=== PATIENT | male | born 1975 | race Caucasian/White ===

== ENCOUNTER 2018-05-17 16:45 | Outpatient (RCR) | payer OTHER, SELFPAY ==
--- NOTE | 2018-03-13 15:37 | PT.OIE ---
Current Diagnoses Low back pain (03/13/18) Provider Visit Care Team Role Provider Type Geetha Allen, JULIA, ANP, C PYTHON DEVELOPER-C Attending Provider Advanced Attending Urologist Family Provider Primary Care Provider Specialty: Family Practice Address: [address] [place] [address], [facility] Email: Physical Therapy Initial Evaluation PT-OP-A Visit Information Start: 03/13/18 07:26 Freq: Status: Active Protocol: Document 03/13/18 08:19 [facility] (Rec: 03/13/18 14:29 [facility] [id number]) Out-Patient Physical Therapy Visit Information Visit Information Visit Type Initial Evaluation Visit Start Time 08:20 Visit Stop Time 09:05 Total Visit Minutes 45 Visit Number 1 Number of MECHANICAL DESIGN TECHNICIAN Visits 0 Evaluation Information Evaluation Date 03/13/18 PT-OP-B Current Condition Start: 03/13/18 07:26 Freq: Status: Active Protocol: Document 03/13/18 08:19 [facility] (Rec: 03/13/18 14:29 [facility] [id number]) Current Condition History of Current Condition Onset Date about 1 month ago Current Complaints LBP History of Current Condition Pt reports he was lifting a tub of his kid's stuff and felt a twinge and his back tigthned up and got worse that week, but has slowly gotten better. 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 Prior Treatments and Tests none Treatment Goals Patient/Caregiver Goals manage pain, learn more about back & anatomy & how to keep his back safe & prevent further injury PT-OP-C Subjective Start: 03/13/18 07:26 Freq: Status: Active Protocol: Document 03/13/18 08:19 [facility] (Rec: 03/13/18 14:29 [facility] [id number]) Patient Questionnaires Oswestry Low Back Index Oswestry Score 20 Oswestry Impairment 20 to 39% Impaired (Score 20- 39) OP-PT Pain Assessment Location Bilateral Back Pain Location Details lumbar region Intensity 4 Scale Used Numeric (1 - 10) Frequency Intermittent Pain Aggravating Factors Sitting Other Pain Aggravating Factors driving, wehn wake up, lifting kids, pain day after sports Other Pain Alleviating Factors alieve, stretch, playing sports/moving PT-OP-F Manual Assessment Start: 03/13/18 07:26 Freq: Status: Active Protocol: Document 03/13/18 08:19 [facility] (Rec: 03/13/18 08:59 [facility] [id number]) Manual Assessments Soft Tissue Assessment Soft Tissue Mobility Assessment Mild ES & QL tightness Joint Mobility Assessment Joint Mobility Assessment Equal greater trochanters, iliac crests & PSIS PT-OP-G Mobility & Gait Start: 03/13/18 07:26 Freq: Status: Active Protocol: Document 03/13/18 08:19 [facility] (Rec: 03/13/18 08:59 [facility] [id number]) OP Gait Assessment Comments Gait Comments Inc ER of B pelvis with push off; dec ant elevation & post depression PT-OP-J Posture/Palpation/Skin Start: 03/13/18 07:26 Freq: Status: Active Protocol: Document 03/13/18 08:19 [facility] (Rec: 03/13/18 08:59 [facility] [id number]) Posture Evaluation [facility] Postural Classification System [facility] Postural Classifications Posterior/Posterior Vertebral Compression Test 1 Elbow Flexion Test 5 Lumbar Protective Mechanism Left AP 2 Lumbar Protective Mechanism Right AP 2 Lumbar Protective Mechanism Left PA 2 Lumbar Protective Mechanism Right PA 2 Leg Swing Left WNL Leg Swing Right Hard End Feel Limited PT-OP-K Range of Motion Start: 03/13/18 07:26 Freq: Status: Active Protocol: Document 03/13/18 08:19 [facility] (Rec: 03/13/18 08:59 [facility] [id number]) Lumbar Spine Range of Motion Lumbar Spine Active Degrees Testing Position standing Flexion 60 Extension 25 Lateral Flexion Left 25 Lateral Flexion Right 25 Comments tight with ext & pain with returning from flexed position PT-OP-L Special Tests Start: 03/13/18 07:26 Freq: Status: Active Protocol: Document 03/13/18 08:19 [facility] (Rec: 03/13/18 08:59 [facility] [id number]) Special Tests Lumbar Spine Special Tests Straight Leg Raise Test Results HS tightness Slump Test Results neg PT-OP-M Strength Start: 03/13/18 07:26 Freq: Status: Active Protocol: Document 03/13/18 08:19 [facility] (Rec: 03/13/18 08:59 [facility] [id number]) Hip Strength Hip Manual Muscle Testing Right Flexion (L2) 5 Normal Extension (S1) 4- Good- Abduction 4 Good External Rotation 4+ Good+ Internal Rotation 4+ Good+ Comments poor core control B in seated testing Left Flexion (L2) 5 Normal Extension (S1) 4- Good- Abduction 4 Good External Rotation 5 Normal Internal Rotation 4+ Good+ PT-OP-Q Treatments Start: 03/13/18 07:26 Freq: Status: Active Protocol: Document 03/13/18 08:19 [facility] (Rec: 03/13/18 08:59 [facility] [id number]) Therapeutic Exercises Supine Exercises 3 Supine Exercise Name HS stretch Side bilateral Reps/Minutes 30 sec holds 2 Supine Exercise Name DKTC 1 Supine Exercise Name flex & diagonal isometric holds Side bilateral Reps/Minutes 30 sec holds PT-OP-T Assessment and Plan Start: 03/13/18 07:26 Freq: Status: Active Protocol: Document 03/13/18 08:19 [facility] (Rec: 03/13/18 15:34 [facility] [id number]) Physical Therapy Assessment Rehab Potential Rehabilitation Potential Excellent Evaluation Complexity Number of Personal Factors/Comorbidities 1-2 Number of Body Systems Impaired 4 or More Clinical Presentation at Evaluation Stable Impairments Impairments Activity Tolerance Gait Pain Posture ROM Soft Tissue Mobility Strength Goals Three Impairment pain Short Term Goal (STG) Pain to 2/10 at worst STG Duration 04/13/18 [facility] Goal (LTG) Pt will reprot no pain with driving, sleeping and sitting extended LTG Duration 05/14/18 Two Impairment posture Short Term Goal (STG) Pt will present with good posture without cueing. STG Duration 04/13/18 Personnel Administrator Goal (LTG) Pt will be able to lift with good lifting mechanics LTG Duration 05/14/18 One Impairment strength Short Term Goal (STG) Indep HEP STG Duration 04/13/18 Personnel Administrator Goal (LTG) 5/5 strength to allow pt to do normal tasks without pain LTG Duration 05/14/18 Physical Therapy Plan Frequency and Duration Frequency of Treatment 1x/Week Duration of Treatment 2 months Plan of Care Start Date 03/13/18 Plan of Care End Date 05/14/18 Therapeutic Interventions Therapeutic Interventions Aquatic Therapy Balance Training Gait Training Home Exercise Program Joint Mobilizations Manual Therapy Soft Tissue Mobilization Taping Therapeutic Exercises Modalities Cold Pack/Ice Massage Electric Stimulation Hot Packs Traction- Mechanical Ultrasound Next Visit Focus/Plan Next Note Type Treatment Note Next Visit Plan sleep position, progress supine core activation, posture edu, lifting mechanics
--- NOTE | 2018-03-13 15:38 | PT.OPPOC ---
Current Diagnoses Low back pain (03/13/18) Provider Visit Care Team Role Provider Type Geetha Allen DNP, ANP, LINE PRODUCTION COOK-C Attending Provider Advanced Commercial Loan Specialist Family Provider Primary Care Provider Specialty: Family Practice Address: [address] [place] [address], [facility] Email: Plan Of Care PT-OP-T Assessment and Plan Start: 03/13/18 07:26 Freq: Status: Active Protocol: Document 03/13/18 08:19 [facility] (Rec: 03/13/18 15:34 [facility] [id number]) Physical Therapy Assessment Rehab Potential Rehabilitation Potential Excellent Evaluation Complexity Number of Personal Factors/Comorbidities 1-2 Number of Body Systems Impaired 4 or More Clinical Presentation at Evaluation Stable Impairments Impairments Activity Tolerance Gait Pain Posture ROM Soft Tissue Mobility Strength Goals Three Impairment pain Short Term Goal (STG) Pain to 2/10 at worst STG Duration 04/13/18 Pain Management Nurse Goal (LTG) Pt will reprot no pain with driving, sleeping and sitting extended LTG Duration 05/14/18 Two Impairment posture Short Term Goal (STG) Pt will present with good posture without cueing. STG Duration 04/13/18 Penitentiary Goal (LTG) Pt will be able to lift with good lifting mechanics LTG Duration 05/14/18 One Impairment strength Short Term Goal (STG) Indep HEP STG Duration 04/13/18 Pain Management Nurse Goal (LTG) 5/5 strength to allow pt to do normal tasks without pain LTG Duration 05/14/18 Physical Therapy Plan Frequency and Duration Frequency of Treatment 1x/Week Duration of Treatment 2 months Plan of Care Start Date 03/13/18 Plan of Care End Date 05/14/18 Therapeutic Interventions Therapeutic Interventions Aquatic Therapy Balance Training Gait Training Home Exercise Program Joint Mobilizations Manual Therapy Soft Tissue Mobilization Taping Therapeutic Exercises Modalities Cold Pack/Ice Massage Electric Stimulation Hot Packs Traction- Mechanical Ultrasound Next Visit Focus/Plan Next Note Type Treatment Note Next Visit Plan sleep position, progress supine core activation, posture edu, lifting mechanics Plan of Care Dates Plan of Care Start Date 03/13/18 Plan of Care End Date 05/14/18 Please Sign and Return: I have reviewed this Plan of Care and certify that the skilled therapy services above are required to meet the patient?s needs. Physician Signature Date Printed Name and Credentials Clinical Instructor Signature Printed Name and Credentials
--- NOTE | 2018-03-21 17:33 | PT.OTN ---
Current Diagnoses Low back pain (03/21/18) Physical Therapy Treatment Note PT-OP-A Visit Information Start: 03/13/18 07:26 Freq: Status: Active Protocol: Document 03/21/18 16:55 [facility] (Rec: 03/21/18 17:32 [facility] [id number]) Out-Patient Physical Therapy Visit Information Visit Information Visit Type Treatment Note Visit Note Arrived 10 minutes late Visit Start Time 16:55 Visit Stop Time 17:30 Total Visit Minutes 35 Visit Number 2 Number of TITLE EXAMINER Visits 0 Evaluation Information Evaluation Date 03/13/18 PT-OP-B Current Condition Start: 03/13/18 07:26 Freq: Status: Active Protocol: Document 03/13/18 08:19 [facility] (Rec: 03/13/18 14:29 [facility] [id number]) Current Condition History of Current Condition Onset Date about 1 month ago Current Complaints LBP History of Current Condition Pt reports he was lifting a tub of his kid's stuff and felt a twinge and his back tigthned up and got worse that week, but has slowly gotten better. 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 Prior Treatments and Tests none Treatment Goals Patient/Caregiver Goals manage pain, learn more about back & anatomy & how to keep his back safe & prevent further injury PT-OP-C Subjective Start: 03/13/18 07:26 Freq: Status: Active Protocol: Document 03/21/18 16:55 [facility] (Rec: 03/21/18 17:32 [facility] [id number]) OP-PT Subjective Patient Comments Patient Comments Pt notes that he's been trying to do his exercises, but feels like his back or hamstrings just randomly get tight after sitting too long in his car or performing any activity. PT-OP-F Manual Assessment Start: 03/13/18 07:26 Freq: Status: Active Protocol: Document 03/13/18 08:19 [facility] (Rec: 03/13/18 08:59 [facility] [id number]) Manual Assessments Soft Tissue Assessment Soft Tissue Mobility Assessment Mild ES & QL tightness Joint Mobility Assessment Joint Mobility Assessment Equal greater trochanters, iliac crests & PSIS PT-OP-G Mobility & Gait Start: 03/13/18 07:26 Freq: Status: Active Protocol: Document 03/13/18 08:19 [facility] (Rec: 03/13/18 08:59 [facility] [id number]) OP Gait Assessment Comments Gait Comments Inc ER of B pelvis with push off; dec ant elevation & post depression PT-OP-J Posture/Palpation/Skin Start: 03/13/18 07:26 Freq: Status: Active Protocol: Document 03/13/18 08:19 [facility] (Rec: 03/13/18 08:59 [facility] [id number]) Posture Evaluation [facility] Postural Classification System [facility] Postural Classifications Posterior/Posterior Vertebral Compression Test 1 Elbow Flexion Test 5 Lumbar Protective Mechanism Left AP 2 Lumbar Protective Mechanism Right AP 2 Lumbar Protective Mechanism Left PA 2 Lumbar Protective Mechanism Right PA 2 Leg Swing Left WNL Leg Swing Right Hard End Feel Limited PT-OP-K Range of Motion Start: 03/13/18 07:26 Freq: Status: Active Protocol: Document 03/13/18 08:19 [facility] (Rec: 03/13/18 08:59 [facility] [id number]) Lumbar Spine Range of Motion Lumbar Spine Active Degrees Testing Position standing Flexion 60 Extension 25 Lateral Flexion Left 25 Lateral Flexion Right 25 Comments tight with ext & pain with returning from flexed position PT-OP-L Special Tests Start: 03/13/18 07:26 Freq: Status: Active Protocol: Document 03/13/18 08:19 [facility] (Rec: 03/13/18 08:59 [facility] [id number]) Special Tests Lumbar Spine Special Tests Straight Leg Raise Test Results HS tightness Slump Test Results neg PT-OP-M Strength Start: 03/13/18 07:26 Freq: Status: Active Protocol: Document 03/13/18 08:19 [facility] (Rec: 03/13/18 08:59 [facility] [id number]) Hip Strength Hip Manual Muscle Testing Right Flexion (L2) 5 Normal Extension (S1) 4- Good- Abduction 4 Good External Rotation 4+ Good+ Internal Rotation 4+ Good+ Comments poor core control B in seated testing Left Flexion (L2) 5 Normal Extension (S1) 4- Good- Abduction 4 Good External Rotation 5 Normal Internal Rotation 4+ Good+ PT-OP-Q Treatments Start: 03/13/18 07:26 Freq: Status: Active Protocol: Document 03/21/18 16:55 [facility] (Rec: 03/21/18 17:32 [facility] [id number]) Gym Equipment Therapeutic Ball 4 Exercise Details Pelvic circles Ball Size/Color Green - 65 cm Body Position Sitting 3 Exercise Details Lateral pelvic tilts Ball Size/Color Green - 65 cm Body Position Sitting 2 Exercise Details Pelvic tilts Ball Size/Color Green - 65 cm Body Position Sitting 1 Exercise Details Trunk rotation vs lv 3 resistance Ball Size/Color Green - 65 cm Body Position Sitting Therapeutic Exercises Supine Exercises 7 Supine Exercise Name PPT /c TrA activation - Air Bike 6 Supine Exercise Name PPT /c TrA activation - Marching 5 Supine Exercise Name PPT /c TrA activation - Alternating SLR 4 Supine Exercise Name PPT /c TrA activation Comments 5 sec hold Sidelying Exercises 1 Sidelying Exercise Name Reach and Roll Side bilateral Other Exercises 1 Other Exercise Name Cat/Camel PT-OP-T Assessment and Plan Start: 03/13/18 07:26 Freq: Status: Active Protocol: Document 03/21/18 16:55 [facility] (Rec: 03/21/18 17:32 [facility] [id number]) Physical Therapy Assessment Impairments Impairments Activity Tolerance Gait Pain Posture ROM Soft Tissue Mobility Strength Goals Three Impairment pain Short Term Goal (STG) Pain to 2/10 at worst STG Duration 04/13/18 Cheese Factory Worker Goal (LTG) Pt will reprot no pain with driving, sleeping and sitting extended LTG Duration 05/14/18 Two Impairment posture Short Term Goal (STG) Pt will present with good posture without cueing. STG Duration 04/13/18 Penitentiary Goal (LTG) Pt will be able to lift with good lifting mechanics LTG Duration 05/14/18 One Impairment strength Short Term Goal (STG) Indep HEP STG Duration 04/13/18 Penitentiary Goal (LTG) 5/5 strength to allow pt to do normal tasks without pain LTG Duration 05/14/18 Assessment Summary Assessment Pt struggled with instruction to move hips independently from trunk, and demonstrate minimal core control or ability to hold transverse abdominus contraction. Physical Therapy Plan Frequency and Duration Frequency of Treatment 1x/Week Duration of Treatment 2 months Plan of Care Start Date 03/13/18 Plan of Care End Date 05/14/18 Therapeutic Interventions Therapeutic Interventions Aquatic Therapy Balance Training Gait Training Home Exercise Program Joint Mobilizations Manual Therapy Soft Tissue Mobilization Taping Therapeutic Exercises Modalities Cold Pack/Ice Massage Electric Stimulation Hot Packs Traction- Mechanical Ultrasound Next Visit Focus/Plan Next Note Type Treatment Note Next Visit Plan sleep position, progress supine core activation, posture edu, lifting mechanics
--- NOTE | 2018-03-29 17:37 | PT.OTN ---
Current Diagnoses Low back pain (03/29/18) Physical Therapy Treatment Note PT-OP-A Visit Information Start: 03/13/18 07:26 Freq: Status: Active Protocol: Document 03/29/18 16:55 [facility] (Rec: 03/29/18 17:37 [facility] [id number]) Out-Patient Physical Therapy Visit Information Visit Information Visit Type Treatment Note Visit Note Arrived 10 minutes late Visit Start Time 16:55 Visit Stop Time 17:30 Total Visit Minutes 35 Visit Number 3 Number of SYSTEM SPECIALIST Visits 0 Evaluation Information Evaluation Date 03/13/18 PT-OP-B Current Condition Start: 03/13/18 07:26 Freq: Status: Active Protocol: Document 03/13/18 08:19 [facility] (Rec: 03/13/18 14:29 [facility] [id number]) Current Condition History of Current Condition Onset Date about 1 month ago Current Complaints LBP History of Current Condition Pt reports he was lifting a tub of his kid's stuff and felt a twinge and his back tigthned up and got worse that week, but has slowly gotten better. 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 Prior Treatments and Tests none Treatment Goals Patient/Caregiver Goals manage pain, learn more about back & anatomy & how to keep his back safe & prevent further injury PT-OP-C Subjective Start: 03/13/18 07:26 Freq: Status: Active Protocol: Document 03/29/18 16:55 [facility] (Rec: 03/29/18 17:37 [facility] [id number]) OP-PT Subjective Patient Comments Patient Comments My back always stiffens up on the long drive over here from work. PT-OP-F Manual Assessment Start: 03/13/18 07:26 Freq: Status: Active Protocol: Document 03/13/18 08:19 [facility] (Rec: 03/13/18 08:59 [facility] [id number]) Manual Assessments Soft Tissue Assessment Soft Tissue Mobility Assessment Mild ES & QL tightness Joint Mobility Assessment Joint Mobility Assessment Equal greater trochanters, iliac crests & PSIS PT-OP-G Mobility & Gait Start: 03/13/18 07:26 Freq: Status: Active Protocol: Document 03/13/18 08:19 [facility] (Rec: 03/13/18 08:59 [facility] [id number]) OP Gait Assessment Comments Gait Comments Inc ER of B pelvis with push off; dec ant elevation & post depression PT-OP-J Posture/Palpation/Skin Start: 03/13/18 07:26 Freq: Status: Active Protocol: Document 03/13/18 08:19 [facility] (Rec: 03/13/18 08:59 [facility] [id number]) Posture Evaluation [facility] Postural Classification System [facility] Postural Classifications Posterior/Posterior Vertebral Compression Test 1 Elbow Flexion Test 5 Lumbar Protective Mechanism Left AP 2 Lumbar Protective Mechanism Right AP 2 Lumbar Protective Mechanism Left PA 2 Lumbar Protective Mechanism Right PA 2 Leg Swing Left WNL Leg Swing Right Hard End Feel Limited PT-OP-K Range of Motion Start: 03/13/18 07:26 Freq: Status: Active Protocol: Document 03/13/18 08:19 [facility] (Rec: 03/13/18 08:59 [facility] [id number]) Lumbar Spine Range of Motion Lumbar Spine Active Degrees Testing Position standing Flexion 60 Extension 25 Lateral Flexion Left 25 Lateral Flexion Right 25 Comments tight with ext & pain with returning from flexed position PT-OP-L Special Tests Start: 03/13/18 07:26 Freq: Status: Active Protocol: Document 03/13/18 08:19 [facility] (Rec: 03/13/18 08:59 [facility] [id number]) Special Tests Lumbar Spine Special Tests Straight Leg Raise Test Results HS tightness Slump Test Results neg PT-OP-M Strength Start: 03/13/18 07:26 Freq: Status: Active Protocol: Document 03/13/18 08:19 [facility] (Rec: 03/13/18 08:59 [facility] [id number]) Hip Strength Hip Manual Muscle Testing Right Flexion (L2) 5 Normal Extension (S1) 4- Good- Abduction 4 Good External Rotation 4+ Good+ Internal Rotation 4+ Good+ Comments poor core control B in seated testing Left Flexion (L2) 5 Normal Extension (S1) 4- Good- Abduction 4 Good External Rotation 5 Normal Internal Rotation 4+ Good+ PT-OP-Q Treatments Start: 03/13/18 07:26 Freq: Status: Active Protocol: Document 03/29/18 16:55 [facility] (Rec: 03/29/18 17:37 [facility] [id number]) Cardio Equipment Other Cardio Equipment Other Cardio Equipment Fitter - two smaller bands Gym Equipment Shuttle Balance 1 Details Red - Staggered Stance, Lateral weight shift Therapeutic Ball 7 Exercise Details LE ball lift /c trunk rotation in air Ball Size/Color Red - 55 cm Body Position Supine 6 Exercise Details Bridging and hamstring curls / c heels on T-ball Ball Size/Color Red - 55 cm Body Position Supine 5 Exercise Details Bridging /c heels on T-ball Ball Size/Color Red - 55 cm Body Position Supine 4 Exercise Details Pelvic circles Ball Size/Color Green - 65 cm Body Position Sitting 3 Exercise Details Lateral pelvic tilts Ball Size/Color Green - 65 cm Body Position Sitting 2 Exercise Details Pelvic tilts Ball Size/Color Green - 65 cm Body Position Sitting Therapeutic Exercises Standing Exercises 1 Standing Exercise Name Hip hiking on step Side bilateral PT-OP-T Assessment and Plan Start: 03/13/18 07:26 Freq: Status: Active Protocol: Document 03/29/18 16:55 [facility] (Rec: 03/29/18 17:37 [facility] [id number]) Physical Therapy Assessment Impairments Impairments Activity Tolerance Gait Pain Posture ROM Soft Tissue Mobility Strength Goals Three Impairment pain Short Term Goal (STG) Pain to 2/10 at worst STG Duration 04/13/18 Jail Goal (LTG) Pt will reprot no pain with driving, sleeping and sitting extended LTG Duration 05/14/18 Two Impairment posture Short Term Goal (STG) Pt will present with good posture without cueing. STG Duration 04/13/18 Jailer Chief Goal (LTG) Pt will be able to lift with good lifting mechanics LTG Duration 05/14/18 One Impairment strength Short Term Goal (STG) Indep HEP STG Duration 04/13/18 Jail Goal (LTG) 5/5 strength to allow pt to do normal tasks without pain LTG Duration 05/14/18 Assessment Summary Assessment Pt continued to struggle core control or ability to hold transverse abdominus contraction, and demonstrates an inability to perform a hip hike. Physical Therapy Plan Frequency and Duration Frequency of Treatment 1x/Week Duration of Treatment 2 months Plan of Care Start Date 03/13/18 Plan of Care End Date 05/14/18 Therapeutic Interventions Therapeutic Interventions Aquatic Therapy Balance Training Gait Training Home Exercise Program Joint Mobilizations Manual Therapy Soft Tissue Mobilization Taping Therapeutic Exercises Modalities Cold Pack/Ice Massage Electric Stimulation Hot Packs Traction- Mechanical Ultrasound Next Visit Focus/Plan Next Note Type Treatment Note Next Visit Plan sleep position, progress supine core activation, posture edu, lifting mechanics
--- NOTE | 2018-04-05 17:31 | PT.OTN ---
Current Diagnoses Low back pain (04/05/18) Physical Therapy Treatment Note PT-OP-A Visit Information Start: 03/13/18 07:26 Freq: Status: Active Protocol: Document 04/05/18 16:45 DCW (Rec: 04/05/18 17:31 DCW [id number]) Out-Patient Physical Therapy Visit Information Visit Information Visit Type Treatment Note Visit Start Time 16:45 Visit Stop Time 17:30 Total Visit Minutes 45 Visit Number 4 Number of RECORDS MANAGEMENT SPECIALIST Visits 0 Evaluation Information Evaluation Date 03/13/18 PT-OP-B Current Condition Start: 03/13/18 07:26 Freq: Status: Active Protocol: Document 03/13/18 08:19 [facility] (Rec: 03/13/18 14:29 [facility] [id number]) Current Condition History of Current Condition Onset Date about 1 month ago Current Complaints LBP History of Current Condition Pt reports he was lifting a tub of his kid's stuff and felt a twinge and his back tigthned up and got worse that week, but has slowly gotten better. 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 Prior Treatments and Tests none Treatment Goals Patient/Caregiver Goals manage pain, learn more about back & anatomy & how to keep his back safe & prevent further injury PT-OP-C Subjective Start: 03/13/18 07:26 Freq: Status: Active Protocol: Document 04/05/18 16:45 DCW (Rec: 04/05/18 17:31 DCW [id number]) OP-PT Subjective Patient Comments Patient Comments I think I'm getting a little better with actually radha my core muscles. There has been a little bit of progress. PT-OP-F Manual Assessment Start: 03/13/18 07:26 Freq: Status: Active Protocol: Document 03/13/18 08:19 [facility] (Rec: 03/13/18 08:59 [facility] [id number]) Manual Assessments Soft Tissue Assessment Soft Tissue Mobility Assessment Mild ES & QL tightness Joint Mobility Assessment Joint Mobility Assessment Equal greater trochanters, iliac crests & PSIS PT-OP-G Mobility & Gait Start: 03/13/18 07:26 Freq: Status: Active Protocol: Document 03/13/18 08:19 [facility] (Rec: 03/13/18 08:59 [facility] [id number]) OP Gait Assessment Comments Gait Comments Inc ER of B pelvis with push off; dec ant elevation & post depression PT-OP-J Posture/Palpation/Skin Start: 03/13/18 07:26 Freq: Status: Active Protocol: Document 03/13/18 08:19 [facility] (Rec: 03/13/18 08:59 [facility] [id number]) Posture Evaluation [facility] Postural Classification System [facility] Postural Classifications Posterior/Posterior Vertebral Compression Test 1 Elbow Flexion Test 5 Lumbar Protective Mechanism Left AP 2 Lumbar Protective Mechanism Right AP 2 Lumbar Protective Mechanism Left PA 2 Lumbar Protective Mechanism Right PA 2 Leg Swing Left WNL Leg Swing Right Hard End Feel Limited PT-OP-K Range of Motion Start: 03/13/18 07:26 Freq: Status: Active Protocol: Document 03/13/18 08:19 [facility] (Rec: 03/13/18 08:59 [facility] [id number]) Lumbar Spine Range of Motion Lumbar Spine Active Degrees Testing Position standing Flexion 60 Extension 25 Lateral Flexion Left 25 Lateral Flexion Right 25 Comments tight with ext & pain with returning from flexed position PT-OP-L Special Tests Start: 03/13/18 07:26 Freq: Status: Active Protocol: Document 03/13/18 08:19 [facility] (Rec: 03/13/18 08:59 [facility] [id number]) Special Tests Lumbar Spine Special Tests Straight Leg Raise Test Results HS tightness Slump Test Results neg PT-OP-M Strength Start: 03/13/18 07:26 Freq: Status: Active Protocol: Document 03/13/18 08:19 [facility] (Rec: 03/13/18 08:59 [facility] [id number]) Hip Strength Hip Manual Muscle Testing Right Flexion (L2) 5 Normal Extension (S1) 4- Good- Abduction 4 Good External Rotation 4+ Good+ Internal Rotation 4+ Good+ Comments poor core control B in seated testing Left Flexion (L2) 5 Normal Extension (S1) 4- Good- Abduction 4 Good External Rotation 5 Normal Internal Rotation 4+ Good+ PT-OP-Q Treatments Start: 03/13/18 07:26 Freq: Status: Active Protocol: Document 04/05/18 16:45 DCW (Rec: 04/05/18 17:31 DCW [id number]) Gym Equipment Shuttle Balance 1 Details Red - Staggered Stance, Lateral weight shift Therapeutic Ball 7 Exercise Details LE ball lift /c trunk rotation in air Ball Size/Color Red - 55 cm Body Position Supine 6 Exercise Details Bridging and hamstring curls / c heels on T-ball Ball Size/Color Red - 55 cm Body Position Supine 5 Exercise Details Bridging /c heels on T-ball Ball Size/Color Red - 55 cm Body Position Supine 4 Exercise Details Pelvic circles Ball Size/Color Green - 65 cm Body Position Sitting 3 Exercise Details Lateral pelvic tilts Ball Size/Color Green - 65 cm Body Position Sitting 2 Exercise Details Pelvic tilts Ball Size/Color Green - 65 cm Body Position Sitting Therapeutic Exercises Standing Exercises 1 Standing Exercise Name Hip hiking on step Side bilateral Other Exercises 2 Other Exercise Name Quadruped Opposite LE/UE lift Equipment Used Foam/Half-balls PT-OP-T Assessment and Plan Start: 03/13/18 07:26 Freq: Status: Active Protocol: Document 04/05/18 16:45 DCW (Rec: 04/05/18 17:31 DCW [id number]) Physical Therapy Assessment Impairments Impairments Activity Tolerance Gait Pain Posture ROM Soft Tissue Mobility Strength Goals Three Impairment pain Short Term Goal (STG) Pain to 2/10 at worst STG Duration 04/13/18 Group Home Goal (LTG) Pt will reprot no pain with driving, sleeping and sitting extended LTG Duration 05/14/18 Two Impairment posture Short Term Goal (STG) Pt will present with good posture without cueing. STG Duration 04/13/18 Leadership Coach Goal (LTG) Pt will be able to lift with good lifting mechanics LTG Duration 05/14/18 One Impairment strength Short Term Goal (STG) Indep HEP STG Duration 04/13/18 Leadership Coach Goal (LTG) 5/5 strength to allow pt to do normal tasks without pain LTG Duration 05/14/18 Assessment Summary Assessment Pt shows some progress with core/abdominal control, however still struggles with certain hip movements, and has trouble hip and trunk mobility. Physical Therapy Plan Frequency and Duration Frequency of Treatment 1x/Week Duration of Treatment 2 months Plan of Care Start Date 03/13/18 Plan of Care End Date 05/14/18 Therapeutic Interventions Therapeutic Interventions Aquatic Therapy Balance Training Gait Training Home Exercise Program Joint Mobilizations Manual Therapy Soft Tissue Mobilization Taping Therapeutic Exercises Modalities Cold Pack/Ice Massage Electric Stimulation Hot Packs Traction- Mechanical Ultrasound Next Visit Focus/Plan Next Note Type Treatment Note Next Visit Plan sleep position, progress supine core activation, posture edu, lifting mechanics
--- NOTE | 2018-04-19 17:32 | PT.OTN ---
Current Diagnoses Low back pain (04/19/18) Physical Therapy Treatment Note PT-OP-A Visit Information Start: 03/13/18 07:26 Freq: Status: Active Protocol: Document 04/19/18 16:45 DCW (Rec: 04/19/18 17:32 DCW [id number]) Out-Patient Physical Therapy Visit Information Visit Information Visit Type Treatment Note Visit Start Time 16:45 Visit Stop Time 17:30 Total Visit Minutes 45 Visit Number 5 Number of CARGO BROKER Visits 0 Evaluation Information Evaluation Date 03/13/18 PT-OP-B Current Condition Start: 03/13/18 07:26 Freq: Status: Active Protocol: Document 03/13/18 08:19 [facility] (Rec: 03/13/18 14:29 [facility] [id number]) Current Condition History of Current Condition Onset Date about 1 month ago Current Complaints LBP History of Current Condition Pt reports he was lifting a tub of his kid's stuff and felt a twinge and his back tigthned up and got worse that week, but has slowly gotten better. 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 Prior Treatments and Tests none Treatment Goals Patient/Caregiver Goals manage pain, learn more about back & anatomy & how to keep his back safe & prevent further injury PT-OP-C Subjective Start: 03/13/18 07:26 Freq: Status: Active Protocol: Document 04/19/18 16:45 DCW (Rec: 04/19/18 17:32 DCW [id number]) OP-PT Subjective Patient Comments Patient Comments I've been practicing at home, it's just hard to figure out if I'm actually doing it right or not. Pt notes his back pain has been better, as long as I'm not driving all day. PT-OP-F Manual Assessment Start: 03/13/18 07:26 Freq: Status: Active Protocol: Document 03/13/18 08:19 [facility] (Rec: 03/13/18 08:59 [facility] [id number]) Manual Assessments Soft Tissue Assessment Soft Tissue Mobility Assessment Mild ES & QL tightness Joint Mobility Assessment Joint Mobility Assessment Equal greater trochanters, iliac crests & PSIS PT-OP-G Mobility & Gait Start: 03/13/18 07:26 Freq: Status: Active Protocol: Document 03/13/18 08:19 [facility] (Rec: 03/13/18 08:59 [facility] [id number]) OP Gait Assessment Comments Gait Comments Inc ER of B pelvis with push off; dec ant elevation & post depression PT-OP-J Posture/Palpation/Skin Start: 03/13/18 07:26 Freq: Status: Active Protocol: Document 03/13/18 08:19 [facility] (Rec: 03/13/18 08:59 [facility] [id number]) Posture Evaluation [facility] Postural Classification System [facility] Postural Classifications Posterior/Posterior Vertebral Compression Test 1 Elbow Flexion Test 5 Lumbar Protective Mechanism Left AP 2 Lumbar Protective Mechanism Right AP 2 Lumbar Protective Mechanism Left PA 2 Lumbar Protective Mechanism Right PA 2 Leg Swing Left WNL Leg Swing Right Hard End Feel Limited PT-OP-K Range of Motion Start: 03/13/18 07:26 Freq: Status: Active Protocol: Document 03/13/18 08:19 [facility] (Rec: 03/13/18 08:59 [facility] [id number]) Lumbar Spine Range of Motion Lumbar Spine Active Degrees Testing Position standing Flexion 60 Extension 25 Lateral Flexion Left 25 Lateral Flexion Right 25 Comments tight with ext & pain with returning from flexed position PT-OP-L Special Tests Start: 03/13/18 07:26 Freq: Status: Active Protocol: Document 03/13/18 08:19 [facility] (Rec: 03/13/18 08:59 [facility] [id number]) Special Tests Lumbar Spine Special Tests Straight Leg Raise Test Results HS tightness Slump Test Results neg PT-OP-M Strength Start: 03/13/18 07:26 Freq: Status: Active Protocol: Document 03/13/18 08:19 [facility] (Rec: 03/13/18 08:59 [facility] [id number]) Hip Strength Hip Manual Muscle Testing Right Flexion (L2) 5 Normal Extension (S1) 4- Good- Abduction 4 Good External Rotation 4+ Good+ Internal Rotation 4+ Good+ Comments poor core control B in seated testing Left Flexion (L2) 5 Normal Extension (S1) 4- Good- Abduction 4 Good External Rotation 5 Normal Internal Rotation 4+ Good+ PT-OP-Q Treatments Start: 03/13/18 07:26 Freq: Status: Active Protocol: Document 04/19/18 16:45 DCW (Rec: 08/29/18 17:32 DCW [id number]) Gym Equipment Shuttle Balance 1 Details Red - Staggered Stance, Lateral weight shift Therapeutic Ball 7 Exercise Details LE ball lift /c trunk rotation in air Ball Size/Color Red - 55 cm Body Position Supine 6 Exercise Details Bridging and hamstring curls / c heels on T-ball Ball Size/Color Red - 55 cm Body Position Supine 5 Exercise Details Bridging /c heels on T-ball Ball Size/Color Red - 55 cm Body Position Supine 4 Exercise Details Pelvic circles Ball Size/Color Green - 65 cm Body Position Sitting 3 Exercise Details Lateral pelvic tilts Ball Size/Color Green - 65 cm Body Position Sitting 2 Exercise Details Pelvic tilts Ball Size/Color Green - 65 cm Body Position Sitting Therapeutic Exercises Standing Exercises 1 Standing Exercise Name Hip hiking on step Side bilateral Manual Therapy Treatment Joint Mobilizations 1 Joint L-spine Direction P->A Grade III Body Position Prone PT-OP-T Assessment and Plan Start: 03/13/18 07:26 Freq: Status: Active Protocol: Document 04/19/18 16:45 DCW (Rec: 04/19/18 17:32 DCW [id number]) Physical Therapy Assessment Impairments Impairments Activity Tolerance Gait Pain Posture ROM Soft Tissue Mobility Strength Goals Three Impairment pain Short Term Goal (STG) Pain to 2/10 at worst STG Duration 04/13/18 Human Resources Manager Manufacturing Goal (LTG) Pt will reprot no pain with driving, sleeping and sitting extended LTG Duration 05/14/18 Two Impairment posture Short Term Goal (STG) Pt will present with good posture without cueing. STG Duration 04/13/18 Senior Living Goal (LTG) Pt will be able to lift with good lifting mechanics LTG Duration 05/14/18 One Impairment strength Short Term Goal (STG) Indep HEP STG Duration 04/13/18 Human Resources Manager Manufacturing Goal (LTG) 5/5 strength to allow pt to do normal tasks without pain LTG Duration 05/14/18 Assessment Summary Assessment Pt improving with his HEP, notes he can actually feel when he performs an exercise correctly due to which muscles are firing. Physical Therapy Plan Frequency and Duration Frequency of Treatment 1x/Week Duration of Treatment 2 months Plan of Care Start Date 03/13/18 Plan of Care End Date 05/14/18 Therapeutic Interventions Therapeutic Interventions Aquatic Therapy Balance Training Gait Training Home Exercise Program Joint Mobilizations Manual Therapy Soft Tissue Mobilization Taping Therapeutic Exercises Modalities Cold Pack/Ice Massage Electric Stimulation Hot Packs Traction- Mechanical Ultrasound Next Visit Focus/Plan Next Note Type Treatment Note Next Visit Plan sleep position, progress supine core activation, posture edu, lifting mechanics
--- NOTE | 2018-04-26 17:26 | PT.OTN ---
Current Diagnoses Low back pain (04/26/18) Physical Therapy Treatment Note PT-OP-A Visit Information Start: 03/13/18 07:26 Freq: Status: Active Protocol: Document 04/26/18 16:45 DCW (Rec: 04/26/18 17:26 DCW [id number]) Out-Patient Physical Therapy Visit Information Visit Information Visit Type Treatment Note Visit Start Time 16:45 Visit Stop Time 17:30 Total Visit Minutes 45 Visit Number 6 Number of SUPERVISOR PARTICLEBOARD Visits 0 Evaluation Information Evaluation Date 03/13/18 PT-OP-B Current Condition Start: 03/13/18 07:26 Freq: Status: Active Protocol: Document 03/13/18 08:19 [facility] (Rec: 03/13/18 14:29 [facility] [id number]) Current Condition History of Current Condition Onset Date about 1 month ago Current Complaints LBP History of Current Condition Pt reports he was lifting a tub of his kid's stuff and felt a twinge and his back tigthned up and got worse that week, but has slowly gotten better. 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 Prior Treatments and Tests none Treatment Goals Patient/Caregiver Goals manage pain, learn more about back & anatomy & how to keep his back safe & prevent further injury PT-OP-C Subjective Start: 03/13/18 07:26 Freq: Status: Active Protocol: Document 04/26/18 16:45 DCW (Rec: 04/26/18 17:26 DCW [id number]) OP-PT Subjective Patient Comments Patient Comments Everything is starting to feel better, but the car rides are still what bother me the most. PT-OP-F Manual Assessment Start: 03/13/18 07:26 Freq: Status: Active Protocol: Document 03/13/18 08:19 [facility] (Rec: 03/13/18 08:59 [facility] [id number]) Manual Assessments Soft Tissue Assessment Soft Tissue Mobility Assessment Mild ES & QL tightness Joint Mobility Assessment Joint Mobility Assessment Equal greater trochanters, iliac crests & PSIS PT-OP-G Mobility & Gait Start: 03/13/18 07:26 Freq: Status: Active Protocol: Document 03/13/18 08:19 [facility] (Rec: 03/13/18 08:59 [facility] [id number]) OP Gait Assessment Comments Gait Comments Inc ER of B pelvis with push off; dec ant elevation & post depression PT-OP-J Posture/Palpation/Skin Start: 03/13/18 07:26 Freq: Status: Active Protocol: Document 03/13/18 08:19 [facility] (Rec: 03/13/18 08:59 [facility] [id number]) Posture Evaluation [facility] Postural Classification System [facility] Postural Classifications Posterior/Posterior Vertebral Compression Test 1 Elbow Flexion Test 5 Lumbar Protective Mechanism Left AP 2 Lumbar Protective Mechanism Right AP 2 Lumbar Protective Mechanism Left PA 2 Lumbar Protective Mechanism Right PA 2 Leg Swing Left WNL Leg Swing Right Hard End Feel Limited PT-OP-K Range of Motion Start: 03/13/18 07:26 Freq: Status: Active Protocol: Document 03/13/18 08:19 [facility] (Rec: 03/13/18 08:59 [facility] [id number]) Lumbar Spine Range of Motion Lumbar Spine Active Degrees Testing Position standing Flexion 60 Extension 25 Lateral Flexion Left 25 Lateral Flexion Right 25 Comments tight with ext & pain with returning from flexed position PT-OP-L Special Tests Start: 03/13/18 07:26 Freq: Status: Active Protocol: Document 03/13/18 08:19 [facility] (Rec: 03/13/18 08:59 [facility] [id number]) Special Tests Lumbar Spine Special Tests Straight Leg Raise Test Results HS tightness Slump Test Results neg PT-OP-M Strength Start: 03/13/18 07:26 Freq: Status: Active Protocol: Document 03/13/18 08:19 [facility] (Rec: 03/13/18 08:59 [facility] [id number]) Hip Strength Hip Manual Muscle Testing Right Flexion (L2) 5 Normal Extension (S1) 4- Good- Abduction 4 Good External Rotation 4+ Good+ Internal Rotation 4+ Good+ Comments poor core control B in seated testing Left Flexion (L2) 5 Normal Extension (S1) 4- Good- Abduction 4 Good External Rotation 5 Normal Internal Rotation 4+ Good+ PT-OP-Q Treatments Start: 03/13/18 07:26 Freq: Status: Active Protocol: Document 04/26/18 16:45 DCW (Rec: 04/26/18 17:26 DCW [id number]) Gym Equipment Shuttle Balance 1 Details Red - Staggered Stance /c ball toss, Lateral weight shift Therapeutic Ball 9 Exercise Details Prone walk-outs/walk-out /c curl Ball Size/Color Green - 65 cm Body Position Prone 8 Exercise Details Marching on T-ball Ball Size/Color Green - 65 cm Body Position Sitting 4 Exercise Details Pelvic circles Ball Size/Color Green - 65 cm Body Position Sitting 3 Exercise Details Lateral pelvic tilts Ball Size/Color Green - 65 cm Body Position Sitting 2 Exercise Details Pelvic tilts Ball Size/Color Green - 65 cm Body Position Sitting Therapeutic Exercises Supine Exercises 8 Supine Exercise Name Piriformis Stretch Comments Fig-4, Hamp-[id number] shoulder 7 Supine Exercise Name PPT /c TrA activation - Air Bike Sidelying Exercises 3 Sidelying Exercise Name Reverse Clamshells Side bilateral Resistance Green T-band 2 Sidelying Exercise Name Clamshells Side bilateral Resistance Green T-band PT-OP-T Assessment and Plan Start: 03/13/18 07:26 Freq: Status: Active Protocol: Document 04/26/18 16:45 DCW (Rec: 04/26/18 17:26 DCW [id number]) Physical Therapy Assessment Impairments Impairments Activity Tolerance Gait Pain Posture ROM Soft Tissue Mobility Strength Goals Three Impairment pain Short Term Goal (STG) Pain to 2/10 at worst STG Duration 04/13/18 Longterm Goal (LTG) Pt will reprot no pain with driving, sleeping and sitting extended LTG Duration 05/14/18 Two Impairment posture Short Term Goal (STG) Pt will present with good posture without cueing. STG Duration 04/13/18 Longterm Goal (LTG) Pt will be able to lift with good lifting mechanics LTG Duration 05/14/18 One Impairment strength Short Term Goal (STG) Indep HEP STG Duration 04/13/18 Cardiovascular Surgical Tech Goal (LTG) 5/5 strength to allow pt to do normal tasks without pain LTG Duration 05/14/18 Assessment Summary Assessment Addition of piriformis stretching should hopefully decrease his reported symptoms when sitting in his car, decrease piriformis tone/spasm Physical Therapy Plan Frequency and Duration Frequency of Treatment 1x/Week Duration of Treatment 2 months Plan of Care Start Date 03/13/18 Plan of Care End Date 05/14/18 Therapeutic Interventions Therapeutic Interventions Aquatic Therapy Balance Training Gait Training Home Exercise Program Joint Mobilizations Manual Therapy Soft Tissue Mobilization Taping Therapeutic Exercises Modalities Cold Pack/Ice Massage Electric Stimulation Hot Packs Traction- Mechanical Ultrasound Next Visit Focus/Plan Next Note Type Treatment Note Next Visit Plan sleep position, progress supine core activation, posture edu, lifting mechanics
--- NOTE | 2018-05-10 17:28 | PT.OTN ---
Current Diagnoses Low back pain (05/10/18) Physical Therapy Treatment Note PT-OP-A Visit Information Start: 03/13/18 07:26 Freq: Status: Active Protocol: Document 05/10/18 16:45 DCW (Rec: 05/10/18 17:27 DCW [id number]) Out-Patient Physical Therapy Visit Information Visit Information Visit Type Treatment Note Visit Start Time 16:45 Visit Stop Time 17:30 Total Visit Minutes 45 Visit Number 6 Number of CHECK WRITING MACHINE OPERATOR Visits 0 Evaluation Information Evaluation Date 03/13/18 PT-OP-B Current Condition Start: 03/13/18 07:26 Freq: Status: Active Protocol: Document 03/13/18 08:19 [facility] (Rec: 03/13/18 14:29 [facility] [id number]) Current Condition History of Current Condition Onset Date about 1 month ago Current Complaints LBP History of Current Condition Pt reports he was lifting a tub of his kid's stuff and felt a twinge and his back tigthned up and got worse that week, but has slowly gotten better. 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 Prior Treatments and Tests none Treatment Goals Patient/Caregiver Goals manage pain, learn more about back & anatomy & how to keep his back safe & prevent further injury PT-OP-C Subjective Start: 03/13/18 07:26 Freq: Status: Active Protocol: Document 05/10/18 16:45 DCW (Rec: 05/10/18 17:27 DCW [id number]) OP-PT Subjective Patient Comments Patient Comments Pt reports he is finally having muscle memory and able to move his hips independently . PT-OP-F Manual Assessment Start: 03/13/18 07:26 Freq: Status: Active Protocol: Document 03/13/18 08:19 [facility] (Rec: 03/13/18 08:59 [facility] [id number]) Manual Assessments Soft Tissue Assessment Soft Tissue Mobility Assessment Mild ES & QL tightness Joint Mobility Assessment Joint Mobility Assessment Equal greater trochanters, iliac crests & PSIS PT-OP-G Mobility & Gait Start: 03/13/18 07:26 Freq: Status: Active Protocol: Document 03/13/18 08:19 [facility] (Rec: 03/13/18 08:59 [facility] [id number]) OP Gait Assessment Comments Gait Comments Inc ER of B pelvis with push off; dec ant elevation & post depression PT-OP-J Posture/Palpation/Skin Start: 03/13/18 07:26 Freq: Status: Active Protocol: Document 03/13/18 08:19 [facility] (Rec: 03/13/18 08:59 [facility] [id number]) Posture Evaluation [facility] Postural Classification System [facility] Postural Classifications Posterior/Posterior Vertebral Compression Test 1 Elbow Flexion Test 5 Lumbar Protective Mechanism Left AP 2 Lumbar Protective Mechanism Right AP 2 Lumbar Protective Mechanism Left PA 2 Lumbar Protective Mechanism Right PA 2 Leg Swing Left WNL Leg Swing Right Hard End Feel Limited PT-OP-K Range of Motion Start: 03/13/18 07:26 Freq: Status: Active Protocol: Document 03/13/18 08:19 [facility] (Rec: 03/13/18 08:59 [facility] [id number]) Lumbar Spine Range of Motion Lumbar Spine Active Degrees Testing Position standing Flexion 60 Extension 25 Lateral Flexion Left 25 Lateral Flexion Right 25 Comments tight with ext & pain with returning from flexed position PT-OP-L Special Tests Start: 03/13/18 07:26 Freq: Status: Active Protocol: Document 03/13/18 08:19 [facility] (Rec: 03/13/18 08:59 [facility] [id number]) Special Tests Lumbar Spine Special Tests Straight Leg Raise Test Results HS tightness Slump Test Results neg PT-OP-M Strength Start: 03/13/18 07:26 Freq: Status: Active Protocol: Document 03/13/18 08:19 [facility] (Rec: 03/13/18 08:59 [facility] [id number]) Hip Strength Hip Manual Muscle Testing Right Flexion (L2) 5 Normal Extension (S1) 4- Good- Abduction 4 Good External Rotation 4+ Good+ Internal Rotation 4+ Good+ Comments poor core control B in seated testing Left Flexion (L2) 5 Normal Extension (S1) 4- Good- Abduction 4 Good External Rotation 5 Normal Internal Rotation 4+ Good+ PT-OP-Q Treatments Start: 03/13/18 07:26 Freq: Status: Active Protocol: Document 05/10/18 16:45 DCW (Rec: 05/10/18 17:27 DCW [id number]) Gym Equipment Shuttle Balance 1 Details Red - Staggered Stance /c ball toss, Lateral weight shift Therapeutic Ball 9 Exercise Details Prone walk-out/curl/push-up/ curl/walk-back Ball Size/Color Green - 65 cm Body Position Prone 8 Exercise Details Marching on T-ball, Fitballs under feet Ball Size/Color Green - 65 cm Body Position Sitting 7 Exercise Details LE ball lift /c trunk rotation in air Ball Size/Color Red - 55 cm Body Position Supine 6 Exercise Details Bridging and hamstring curls / c heels on T-ball Ball Size/Color Red - 55 cm Body Position Supine 4 Exercise Details Pelvic circles Ball Size/Color Green - 65 cm Body Position Sitting 3 Exercise Details Lateral pelvic tilts Ball Size/Color Green - 65 cm Body Position Sitting 2 Exercise Details Pelvic tilts Ball Size/Color Green - 65 cm Body Position Sitting Therapeutic Exercises Supine Exercises 8 Supine Exercise Name Piriformis Stretch Comments Fig-4, Gvtg-[id number] shoulder Manual Therapy Treatment Joint Mobilizations 1 Joint L-spine Direction P->A Grade III Body Position Prone PT-OP-T Assessment and Plan Start: 03/13/18 07:26 Freq: Status: Active Protocol: Document 05/10/18 16:45 DCW (Rec: 05/10/18 17:27 DCW [id number]) Physical Therapy Assessment Impairments Impairments Activity Tolerance Gait Pain Posture ROM Soft Tissue Mobility Strength Goals Three Impairment pain Short Term Goal (STG) Pain to 2/10 at worst STG Duration 04/13/18 [facility] Goal (LTG) Pt will reprot no pain with driving, sleeping and sitting extended LTG Duration 05/14/18 Two Impairment posture Short Term Goal (STG) Pt will present with good posture without cueing. STG Duration 04/13/18 [facility] Goal (LTG) Pt will be able to lift with good lifting mechanics LTG Duration 05/14/18 One Impairment strength Short Term Goal (STG) Indep HEP STG Duration 04/13/18 [facility] Goal (LTG) 5/5 strength to allow pt to do normal tasks without pain LTG Duration 05/14/18 Assessment Summary Assessment Pt improving with hip and spine mobility, as well as independent motor function between the two. Physical Therapy Plan Frequency and Duration Frequency of Treatment 1x/Week Duration of Treatment 2 months Plan of Care Start Date 03/13/18 Plan of Care End Date 05/14/18 Therapeutic Interventions Therapeutic Interventions Aquatic Therapy Balance Training Gait Training Home Exercise Program Joint Mobilizations Manual Therapy Soft Tissue Mobilization Taping Therapeutic Exercises Modalities Cold Pack/Ice Massage Electric Stimulation Hot Packs Traction- Mechanical Ultrasound Next Visit Focus/Plan Next Note Type Treatment Note Next Visit Plan sleep position, progress supine core activation, posture edu, lifting mechanics
--- NOTE | 2018-05-17 17:31 | PT.OTN ---
Current Diagnoses Low back pain (05/17/18) Physical Therapy Treatment Note PT-OP-A Visit Information Start: 03/13/18 07:26 Freq: Status: Active Protocol: Document 05/17/18 17:00 DCW (Rec: 05/17/18 17:30 DCW [id number]) Out-Patient Physical Therapy Visit Information Visit Information Visit Type Treatment Note Visit Note 15 minutes late Visit Start Time 17:00 Visit Stop Time 17:30 Total Visit Minutes 30 Visit Number 8 Number of JUNK DEALER Visits 0 Evaluation Information Evaluation Date 03/13/18 PT-OP-B Current Condition Start: 03/13/18 07:26 Freq: Status: Active Protocol: Document 03/13/18 08:19 [facility] (Rec: 03/13/18 14:29 [facility] [id number]) Current Condition History of Current Condition Onset Date about 1 month ago Current Complaints LBP History of Current Condition Pt reports he was lifting a tub of his kid's stuff and felt a twinge and his back tightened up and got worse that week, but has slowly gotten better. 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 Prior Treatments and Tests none Treatment Goals Patient/Caregiver Goals manage pain, learn more about back & anatomy & how to keep his back safe & prevent further injury PT-OP-C Subjective Start: 03/13/18 07:26 Freq: Status: Active Protocol: Document 05/17/18 17:00 DCW (Rec: 05/17/18 17:30 DCW [id number]) OP-PT Subjective Patient Comments Patient Comments Pt not experiencing any more pain with driving, occasionally will have a little stiffness with first getting up in the AM, but now I can stretch out and get rid of it quickly. PT-OP-F Manual Assessment Start: 03/13/18 07:26 Freq: Status: Active Protocol: Document 05/17/18 17:00 DCW (Rec: 05/17/18 17:09 DCW [id number]) Manual Assessments Soft Tissue Assessment Soft Tissue Mobility Assessment No notable paravertebral tightness Joint Mobility Assessment Joint Mobility Assessment Equal greater trochanters, iliac crests & PSIS PT-OP-G Mobility & Gait Start: 03/13/18 07:26 Freq: Status: Active Protocol: Document 05/17/18 17:00 DCW (Rec: 05/17/18 17:09 DCW [id number]) OP Gait Assessment Comments Gait Comments Pelvic mobility WNL during gait PT-OP-K Range of Motion Start: 03/13/18 07:26 Freq: Status: Active Protocol: Document 05/17/18 17:00 DCW (Rec: 05/17/18 17:09 DCW [id number]) Lumbar Spine Range of Motion Lumbar Spine Active Degrees Comments WNL PT-OP-L Special Tests Start: 03/13/18 07:26 Freq: Status: Active Protocol: Document 05/17/18 17:00 DCW (Rec: 05/17/18 17:09 DCW [id number]) Special Tests Lumbar Spine Special Tests Straight Leg Raise Test Results mild HS tightness at 75 degrees PT-OP-M Strength Start: 03/13/18 07:26 Freq: Status: Active Protocol: Document 05/17/18 17:00 DCW (Rec: 05/17/18 17:09 DCW [id number]) Hip Strength Hip Manual Muscle Testing Right Flexion (L2) 5 Normal Extension (S1) 4+ Good+ Abduction 5 Normal Adduction 5 Normal External Rotation 5 Normal Internal Rotation 5 Normal Comments good+ core control bilaterally Left Flexion (L2) 5 Normal Extension (S1) 4+ Good+ Abduction 5 Normal Adduction 5 Normal External Rotation 5 Normal Internal Rotation 5 Normal PT-OP-Q Treatments Start: 03/13/18 07:26 Freq: Status: Active Protocol: Document 05/17/18 17:00 DCW (Rec: 05/17/18 17:30 DCW [id number]) Gym Equipment Therapeutic Ball 9 Exercise Details Prone walk-out/curl/push-up/ curl/walk-back Ball Size/Color Green - 65 cm Body Position Prone 6 Exercise Details Bridging and hamstring curls / c heels on T-ball Ball Size/Color Red - 55 cm Body Position Supine Manual Therapy Treatment Other Other Manual Treatments Objective measure testing PT-OP-T Assessment and Plan Start: 03/13/18 07:26 Freq: Status: Active Protocol: Document 05/17/18 17:00 DCW (Rec: 05/17/18 17:30 DCW [id number]) Physical Therapy Assessment Impairments Impairments Activity Tolerance Gait Pain Posture ROM Soft Tissue Mobility Strength Goals Three Impairment pain Short Term Goal (STG) Pain to 2/10 at worst STG Duration Met Senior Energy Trader Goal (LTG) Pt will report no pain with driving, sleeping and sitting extended LTG Duration Met Two Impairment posture Short Term Goal (STG) Pt will present with good posture without cueing. STG Duration Met Senior Energy Trader Goal (LTG) Pt will be able to lift with good lifting mechanics LTG Duration Met One Impairment strength Short Term Goal (STG) Indep HEP STG Duration Met Alf Goal (LTG) 5/5 strength to allow pt to do normal tasks without pain LTG Duration 05/14/18 - Improving Assessment Summary Assessment Pt has met nearly all goals, and has gotten to the point where he is able to self- stretch any small pain he may still have remaining. Pt is appropriate for discharge at this time, and patient is agreeable. Physical Therapy Plan Frequency and Duration Frequency of Treatment 1x/Week Duration of Treatment 1 day Plan of Care Start Date 05/17/18 Plan of Care End Date 05/18/18 Therapeutic Interventions Therapeutic Interventions Aquatic Therapy Balance Training Gait Training Home Exercise Program Joint Mobilizations Manual Therapy Soft Tissue Mobilization Taping Therapeutic Exercises Modalities Cold Pack/Ice Massage Electric Stimulation Hot Packs Traction- Mechanical Ultrasound Discharge Physical Therapy Discharge Reasons Goals Met Next Visit Focus/Plan Next Note Type Discharge Summary
--- NOTE | 2018-05-17 17:32 | PT.OPPOC ---
Current Diagnoses Low back pain (05/17/18) Provider Visit Care Team Role Provider Type Geetha Allen DNP, ANP, SUPERINTENDENT DRILLING AND PRODUCTION-C Attending Provider Advanced Teacher Associate Family Provider Primary Care Provider Specialty: Family Practice Address: [address] [place] [address], [facility] Email: Plan Of Care PT-OP-T Assessment and Plan Start: 03/13/18 07:26 Freq: Status: Active Protocol: Document 05/17/18 17:00 DCW (Rec: 05/17/18 17:30 DCW [id number]) Physical Therapy Assessment Impairments Impairments Activity Tolerance Gait Pain Posture ROM Soft Tissue Mobility Strength Goals Three Impairment pain Short Term Goal (STG) Pain to 2/10 at worst STG Duration Met Retirement Goal (LTG) Pt will reprot no pain with driving, sleeping and sitting extended LTG Duration Met Two Impairment posture Short Term Goal (STG) Pt will present with good posture without cueing. STG Duration Met Food Safety Director Goal (LTG) Pt will be able to lift with good lifting mechanics LTG Duration Met One Impairment strength Short Term Goal (STG) Indep HEP STG Duration Met Food Safety Director Goal (LTG) 5/5 strength to allow pt to do normal tasks without pain LTG Duration 05/14/18 - Improving Assessment Summary Assessment Pt has met nearly all goals, and has gotten to the point where he is able to self- stretch any small pain he may still have remaining. Pt is appropriate for discharge at this time, and patient is agreeable. Physical Therapy Plan Frequency and Duration Frequency of Treatment 1x/Week Duration of Treatment 1 day Plan of Care Start Date 05/17/18 Plan of Care End Date 05/18/18 Therapeutic Interventions Therapeutic Interventions Aquatic Therapy Balance Training Gait Training Home Exercise Program Joint Mobilizations Manual Therapy Soft Tissue Mobilization Taping Therapeutic Exercises Modalities Cold Pack/Ice Massage Electric Stimulation Hot Packs Traction- Mechanical Ultrasound Discharge Physical Therapy Discharge Reasons Goals Met Next Visit Focus/Plan Next Note Type Discharge Summary Plan of Care Dates Plan of Care Start Date 05/17/18 Plan of Care End Date 05/18/18 Please Sign and Return: I have reviewed this Plan of Care and certify that the skilled therapy services above are required to meet the patient?s needs. Physician Signature Date Printed Name and Credentials Clinical Instructor Signature Printed Name and Credentials
--- NOTE | 2018-05-17 17:33 | PT.OPDS ---
Current Diagnoses Low back pain (05/17/18) Provider Visit Care Team Role Provider Type Geetha Allen DNP, ANP, ELECTROPHYSIOLOGY TECHNOLOGIST-C Attending Provider Advanced Lobby Concierge Family Provider Primary Care Provider Specialty: Family Practice Address: [address] [place] [address], [facility] Email: Visit Number Visit Number 8 Discharge Summary PT-OP-B Current Condition Start: 03/13/18 07:26 Freq: Status: Active Protocol: Document 03/13/18 08:19 LR (Rec: 03/13/18 14:29 [facility] [id number]) Current Condition History of Current Condition Onset Date about 1 month ago Current Complaints LBP History of Current Condition Pt reports he was lifting a tub of his kid's stuff and felt a twinge and his back tigthned up and got worse that week, but has slowly gotten better. 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 Prior Treatments and Tests none Treatment Goals Patient/Caregiver Goals manage pain, learn more about back & anatomy & how to keep his back safe & prevent further injury PT-OP-C Subjective Start: 03/13/18 07:26 Freq: Status: Active Protocol: Document 05/17/18 17:00 DCW (Rec: 05/17/18 17:30 DCW [id number]) OP-PT Subjective Patient Comments Patient Comments Pt not experiencing any more pain with driving, occasionally will have a little stiffness with first getting up in the AM, but now I can stretch out and get rid of it quickly. PT-OP-F Manual Assessment Start: 03/13/18 07:26 Freq: Status: Active Protocol: Document 05/17/18 17:00 DCW (Rec: 05/17/18 17:09 DCW [id number]) Manual Assessments Soft Tissue Assessment Soft Tissue Mobility Assessment No notable paravertebral tightness Joint Mobility Assessment Joint Mobility Assessment Equal greater trochanters, iliac crests & PSIS PT-OP-G Mobility & Gait Start: 03/13/18 07:26 Freq: Status: Active Protocol: Document 05/17/18 17:00 DCW (Rec: 05/17/18 17:09 DCW [id number]) OP Gait Assessment Comments Gait Comments Pelvic mobility WNL during gait PT-OP-K Range of Motion Start: 03/13/18 07:26 Freq: Status: Active Protocol: Document 05/17/18 17:00 DCW (Rec: 05/17/18 17:09 DCW [id number]) Lumbar Spine Range of Motion Lumbar Spine Active Degrees Comments WNL PT-OP-L Special Tests Start: 03/13/18 07:26 Freq: Status: Active Protocol: Document 05/17/18 17:00 DCW (Rec: 05/17/18 17:09 DCW [id number]) Special Tests Lumbar Spine Special Tests Straight Leg Raise Test Results mild HS tightness at 75 degrees PT-OP-M Strength Start: 03/13/18 07:26 Freq: Status: Active Protocol: Document 05/17/18 17:00 DCW (Rec: 05/17/18 17:09 DCW [id number]) Hip Strength Hip Manual Muscle Testing Right Flexion (L2) 5 Normal Extension (S1) 4+ Good+ Abduction 5 Normal Adduction 5 Normal External Rotation 5 Normal Internal Rotation 5 Normal Comments good+ core control bilaterally Left Flexion (L2) 5 Normal Extension (S1) 4+ Good+ Abduction 5 Normal Adduction 5 Normal External Rotation 5 Normal Internal Rotation 5 Normal PT-OP-T Assessment and Plan Start: 03/13/18 07:26 Freq: Status: Active Protocol: Document 05/17/18 17:00 DCW (Rec: 05/17/18 17:30 DCW [id number]) Physical Therapy Assessment Impairments Impairments Activity Tolerance Gait Pain Posture ROM Soft Tissue Mobility Strength Goals Three Impairment pain Short Term Goal (STG) Pain to 2/10 at worst STG Duration Met Senior Living Goal (LTG) Pt will reprot no pain with driving, sleeping and sitting extended LTG Duration Met Two Impairment posture Short Term Goal (STG) Pt will present with good posture without cueing. STG Duration Met Water Meter Installer Goal (LTG) Pt will be able to lift with good lifting mechanics LTG Duration Met One Impairment strength Short Term Goal (STG) Indep HEP STG Duration Met Senior Living Goal (LTG) 5/5 strength to allow pt to do normal tasks without pain LTG Duration 05/14/18 - Improving Assessment Summary Assessment Pt has met nearly all goals, and has gotten to the point where he is able to self- stretch any small pain he may still have remaining. Pt is appropriate for discharge at this time, and patient is agreeable. Physical Therapy Plan Frequency and Duration Frequency of Treatment 1x/Week Duration of Treatment 1 day Plan of Care Start Date 05/17/18 Plan of Care End Date 05/18/18 Therapeutic Interventions Therapeutic Interventions Aquatic Therapy Balance Training Gait Training Home Exercise Program Joint Mobilizations Manual Therapy Soft Tissue Mobilization Taping Therapeutic Exercises Modalities Cold Pack/Ice Massage Electric Stimulation Hot Packs Traction- Mechanical Ultrasound Discharge Physical Therapy Discharge Reasons Goals Met Next Visit Focus/Plan Next Note Type Discharge Summary
== END 2018-06-02 09:41 ==
LOC: PHYS 16:45
PROVIDERS: Family Provider Nurse Practitioner Family; PCP Nurse Practitioner Family; Visit Provider Nurse Practitioner Family
DX: M54.5 Low back pain (principal)
CPT/HCPCS: 97110; 97112; 97140; 97161

== ENCOUNTER → 2019-06-02 08:07 | Outpatient (CLI) | payer OTHER, SELFPAY ==
[2019-06-02 09:16] LABS: Hematocrit 42.7 % (41-53); Hemoglobin 14.5 g/dL (13.5-17.5); Mean Corpuscular HGB Conc 33.9 % (30-36); Mean Corpuscular Hemoglobin 29.2 PG (26-34); Mean Corpuscular Volume 86.4 fL (80-100); Platelet Count 251 X10^3/uL (150-400); Red Blood Cell Count 4.95 X10^6/uL (4.5-5.9); Red Cell Distribution Width 12.7 % (11.6-14.8); White Blood Cell Count 5.2 X10^3/uL (4.5-11.0)
[2019-06-02 09:39] LABS: Alanine Aminotransferase 21 IU/L (21-72); Albumin 4.7 g/dL (3.5-5.0); Albumin Globulin Ratio 1.7 (1.0-2.8); Alkaline Phosphatase 26 U/L (38-126); Aspartate Aminotransferase 28 IU/L (17-59); BUN Creatinine Ratio 17.3 (6-22); Bilirubin Total 0.6 mg/dL (0.2-1.3); Blood Urea Nitrogen 19 mg/dL (9-20); Calcium 9.9 mg/dL (8.4-10.2); Carbon Dioxide 32 mmol/L (22-32); Chloride 100 mmol/L (98-107); Cholesterol 187 mg/dL (140-199); Estimated Glomerular Filt Rate > 60.0 mL/min (>60); Globulin 2.7 g/dL (1.7-4.1); Glucose 89 mg/dL (70-100); HDL Cholesterol 50 mg/dL (40-60); HEMOLYSIS < 15 (0-50); LDL Cholesterol Calculated 119 mg/dL (<100); Potassium 4.4 mmol/L (3.4-5.1); Sodium 140 mmol/L (137-145); Total Protein 7.4 g/dL (6.3-8.2); Triglycerides 90 mg/dL (35-150)
== END ==
PROVIDERS: PCP Registered Nurse; Visit Provider Nurse Practitioner Family
DX: Z00.00 Encounter for general adult medical examination without abnormal findings (principal); Z13.6 Encounter for screening for cardiovascular disorders
CPT/HCPCS: 36415; 80053; 80061; 85027

== ENCOUNTER → 2020-06-07 10:34 | Outpatient (CLI) | payer OTHER, SELFPAY ==
[2020-06-09 05:58] LABS: COVID19 Sendout Not Detected (Not Detect)
== END ==
PROVIDERS: PCP Registered Nurse; Visit Provider Physician Assistant
DX: Z20.828 Contact with and (suspected) exposure to other viral communicable diseases (principal)
CPT/HCPCS: 87635

== ENCOUNTER → 2020-07-02 16:46 | Outpatient (CLI) | payer OTHER, SELFPAY ==
[2020-07-02 17:43] LABS: Hematocrit 38.4 % (41-53); Hemoglobin 13.4 g/dL (13.5-17.5); Mean Corpuscular Hemoglobin 29.8 PG (26-34); Mean Corpuscular Volume 85.1 fL (80-100); Platelet Count 262 X10^3/uL (150-400); Red Blood Cell Count 4.51 X10^6/uL (4.5-5.9); Red Cell Distribution Width 12.9 % (11.6-14.8); White Blood Cell Count 6.6 X10^3/uL (4.5-11.0)
[2020-07-02 17:54] LABS: Alanine Aminotransferase 18 IU/L (<50); Albumin 4.4 g/dL (3.5-5.0); Albumin Globulin Ratio 1.5 (1.0-2.8); Alkaline Phosphatase 31 U/L (38-126); Aspartate Aminotransferase 29 IU/L (17-59); BUN Creatinine Ratio 21.4 (6-22); Bilirubin Total 0.4 mg/dL (0.2-1.3); Blood Urea Nitrogen 22 mg/dL (9-20); Calcium 9.3 mg/dL (8.4-10.2); Carbon Dioxide 29 mmol/L (22-32); Chloride 103 mmol/L (98-107); Estimated Glomerular Filt Rate > 60.0 mL/min (>60); Globulin 2.9 g/dL (1.7-4.1); Glucose 133 mg/dL (70-100); HEMOLYSIS < 15 (0-50); Sodium 137 mmol/L (137-145); Total Protein 7.3 g/dL (6.3-8.2)
== END ==
PROVIDERS: PCP Nurse Practitioner Family; Referring Provider Nurse Practitioner Family; Visit Provider Nurse Practitioner Family
DX: Z00.00 Encounter for general adult medical examination without abnormal findings (principal)
CPT/HCPCS: 36415; 80053; 85027

== ENCOUNTER → 2020-07-03 14:29 | Outpatient (CLI) | payer OTHER, SELFPAY ==
[2020-07-03 14:55] LABS: Hemoglobin A1C% w Est Avg Glu 5.5 % (4.0-6.0)
== END ==
PROVIDERS: PCP Nurse Practitioner Family; Visit Provider Nurse Practitioner Family
DX: R73.9 Hyperglycemia, unspecified (principal)
CPT/HCPCS: 83036

== ENCOUNTER → 2020-07-11 10:18 | Outpatient (CLI) | payer OTHER, SELFPAY ==
[2020-07-11 11:24] LABS: Hematocrit 41.1 % (41-53); Mean Corpuscular Hemoglobin 29.1 PG (26-34); Mean Corpuscular Volume 85.7 fL (80-100); Platelet Count 268 X10^3/uL (150-400); Red Cell Distribution Width 12.9 % (11.6-14.8); White Blood Cell Count 5.2 X10^3/uL (4.5-11.0)
== END ==
PROVIDERS: PCP Nurse Practitioner Family; Referring Provider Nurse Practitioner Family; Visit Provider Nurse Practitioner Family
DX: R71.0 Precipitous drop in hematocrit (principal)
CPT/HCPCS: 36415; 85027

== ENCOUNTER → 2020-12-02 16:25 | Outpatient (CLI) | payer OTHER, SELFPAY ==
[2020-12-02] MEDS: COVID-19 VACC #1, MRNA(MOD) 100 MCG/0.5 ML VIAL IM (16:32)
== END ==
PROVIDERS: PCP Nurse Practitioner Family; Visit Provider Internal Medicine
DX: Z23 Encounter for immunization (principal)
CPT/HCPCS: 0011A; 91301

== ENCOUNTER → 2020-12-31 15:57 | Outpatient (CLI) | payer OTHER, SELFPAY ==
[2020-12-31] MEDS: COVID-19 VACC #2, MRNA(MOD) 100 MCG/0.5 ML VIAL IM (15:58)
== END ==
PROVIDERS: PCP Nurse Practitioner Family; Visit Provider Internal Medicine
DX: Z23 Encounter for immunization (principal)
CPT/HCPCS: 0012A; 91301

== ENCOUNTER → 2024-07-14 07:59 | Outpatient (CLI) | payer OTHER, SELFPAY ==
[2024-07-14 09:38] LABS: Add Manual Diff / Slide Review NO; Basophils Absolute Auto 100 /uL (0-100); Basophils Percent Auto 1.2 % (0-2); Eosinophils Absolute Auto 300 /uL (0-450); Eosinophils Percent Auto 4.1 % (2-4); Hematocrit 44.5 % (41-53); Hemoglobin 15.1 g/dL (13.5-17.5); Lymphocytes Absolute Auto 2000 /uL (1100-4500); Lymphocytes Percent Auto 33.1 % (25-40); Mean Corpuscular HGB Conc 33.9 % (30-36); Mean Corpuscular Hemoglobin 29.2 PG (26-34); Mean Corpuscular Volume 86.1 fL (80-100); Monocytes Absolute Auto 500 /uL (0-900); Monocytes Percent Auto 7.4 % (3-14); Neutrophils Absolute Auto 3400 /uL (1500-7000); Neutrophils Percent Auto 54.2 % (50-75); Platelet Count 275 X10^3/uL (150-400); Red Blood Cell Count 5.17 X10^6/uL (4.5-5.9); White Blood Cell Count 6.2 X10^3/uL (4.5-11.0)
[2024-07-14 10:03] LABS: Alanine Aminotransferase 19 IU/L (<50); Albumin 4.7 g/dL (3.5-5.0); Albumin Globulin Ratio 1.7 (1.0-2.8); Alkaline Phosphatase 26 U/L (38-126); Aspartate Aminotransferase 27 IU/L (17-59); BUN Creatinine Ratio 23.4 (6-22); Bilirubin Total 0.6 mg/dL (0.2-1.3); Blood Urea Nitrogen 25 mg/dL (9-20); Calcium 9.7 mg/dL (8.4-10.2); Carbon Dioxide 29 mmol/L (22-32); Chloride 103 mmol/L (98-107); Cholesterol 242 mg/dL (140-199); Estimated Glomerular Filt Rate > 60 mL/min (>60); Globulin 2.8 g/dL (1.7-4.1); Glucose 96 mg/dL (70-100); HDL Cholesterol 51 mg/dL (40-60); HEMOLYSIS < 15 (0-50); LDL Cholesterol Calculated 160 mg/dL (<100); Potassium 4.2 mmol/L (3.4-5.1); Sodium 138 mmol/L (137-145); Total Protein 7.5 g/dL (6.3-8.2); Triglycerides 156 mg/dL (35-150)
[2024-07-14 10:13] LABS: Vitamin D 25 Hydroxy (D3) 43.2 ng/mL (30.0-100.0)
[2024-07-14 10:27] LABS: TSH w/ Reflex to FT4 2.49 uIU/mL (0.47-4.68)
[2024-07-14 10:46] LABS: Vitamin B12 663 pg/mL (239-931)
== END ==
PROVIDERS: PCP Family Medicine; Referring Provider Family Medicine; Visit Provider Family Medicine
DX: R53.83 Other fatigue (principal); Z13.220 Encounter for screening for lipoid disorders; Z13.29 Encounter for screening for other suspected endocrine disorder; F32.4 Major depressive disorder, single episode, in partial remission; F41.9 Anxiety disorder, unspecified
CPT/HCPCS: 36415; 80053; 80061; 82306; 82607; 84443; 85025

== ENCOUNTER 2024-10-04 07:36 | Day surgery (SDC) | payer OTHER, SELFPAY ==
[2024-10-04] MEDS: LACTATED RINGERS 1,000 ML 42 ML IV (08:41)
[2024-10-04 08:47] VITALS: BP 141/85; PULSE 60; RESP 14; TEMP 36.6; O2SAT 98
--- NOTE | 2024-10-04 09:37 | PM.HP.IH.1 ---
History of Present Illness History of Present Illness Date Patient Seen: 10/04/24 Time Patient Seen: 09:37 Chief complaint: Screening Colonoscopy Narrative: 48-year-old white male presents for initial screening colonoscopy. No symptoms. [facility] Medical History (Updated 10/04/24 @ 09:38 by Brian Albarran MD) Colon cancer screening Excessive cerumen in both ear canals Mild hyperlipidemia Fatigue Reactive airway disease Depression (1995) Asthma Hayfever Alcohol abuse OCD (obsessive compulsive disorder) Anxiety Surgical History History of vasectomy Family History Brother Cardiomyopathy History of heart transplant Father Alcoholism Alzheimer's dementia Mother Seasonal allergies Anemia Hypothyroid Social History Smoking Status: Never smoker second hand exposure: No alcohol intake: former substance use type: does not use Meds Home Medications and Allergies Home Medications Medication Instructions Recorded Confirmed Type albuterol sulfate 90 mcg/actuation 1 inh inhalation Q4-6H PRN 09/16/19 10/04/24 Rx aerosol inhaler shortness of breath #18 grams sertraline 100 mg tablet 150 mg (1.5 x 100 mg) PO DAILY 08/13/24 10/04/24 Rx #135 tabs Allergies Allergy/AdvReac Type Severity Reaction Status Date / Time No Known Drug Allergies Allergy Unknown Verified 10/04/24 08:41 Review of Systems Review of Systems ROS: Yes All systems reviewed with the patient and are negative except as otherwise documented Exam Vital Signs (past 8 hours): - 10/04/24 08:47 Temperature 97.8 F Pulse Rate 60 Respiratory Rate 14 Blood Pressure 141/85 H Pulse Oximetry 98 Oxygen Delivery Method Room Air Oxygen Delivery Method Room Air Narrative Exam Narrative: Gen: NAD, sitting comfortably in bed, appears well HEENT: Sclera are anicteric, head is normocephalic and atraumatic, trachea is midline. CV: RRR, no JVD Resp: clear to auscultation bilaterally, equal chest wall movement bilaterally Abd: soft, nontender, normoactive bowel sounds Ext: no edema, full range of motion Neuro: Cranial nerves II-XII grossly intact, no focal deficits Skin: No erythema or ecchymosis Assessment & Plan Assessment and plan (1) Colon cancer screening: Status: Acute Assessment & Plan narrative: Patient presents for colonoscopy Risks, benefits, alternatives to colonoscopy explained, including but not limited to bowel perforation or other serious complication requiring surgery at less than 1 in 5000 colonoscopies, abdominal pain, cramping or bleeding and less than 1% of colonoscopies, and the chances that we find a diagnosis that would require further intervention of about 2%. Patient agrees to proceed. Time-Based Coding :: [TOTAL MINUTES] spent with patient and on the chart (including review of chart, obtaining history, exam, reviewing outside data, placing orders, documenting exam and treatment plan, and counseling patient) on [DATE]. PROFEE Lining Stamper Document charge(s): No
--- NOTE | 2024-10-04 09:56 | P.OP.COLON_ITS ---
Operative Date/Time/Diagnoses Date of procedure: 10/04/24 Time of procedure: 09:56 Pre-op diagnosis: Colon screening Post-op diagnosis: same Procedure & Clinicians Study performed: Colonoscopy Same procedure as scheduled: Yes Indications: Colon screening Surgeon: Brian Albarran Procedure Notes SCOAP/Timeout: Performed Procedure in detail: Time-out was performed. Mac was induced. Patient was placed in left lateral d ecubitus position. The perineum was inspected without any gross abnormality. Lubricated pediatric colonoscope was inserted and advanced to the cecum. The terminal ileum was intubated. The colonoscope was withdrawn slowly inspecting the circumference of the colon. Very small polyps may have been missed, prep quality was adequate. Retroflexed view of the rectum showed small, non prolapsed nonbleeding internal hemorrhoids. The scope was withdrawn the patient was taken to PACU in good condition. Scope withdrawal time: 7 Sedation minutes: 14 Specimen(s): none sent Complications: none Impression: Normal colon Post-procedure Recommendations: Colonoscopy in 10 years Follow up: as needed Disposition: PACU
[2024-10-04 09:57] VITALS: BP 100/62; PULSE 52; RESP 12; TEMP 36.3; O2SAT 99
[2024-10-04 10:03] VITALS: BP 101/70; PULSE 60; RESP 12; O2SAT 99
[2024-10-04 10:08] VITALS: BP 114/76; PULSE 55; RESP 12; O2SAT 99
[2024-10-04 10:11] VITALS: BP 123/75; PULSE 58; RESP 16; O2SAT 98
== END 2024-10-04 10:29 | disposition home or self-care (01) ==
PROVIDERS: PCP Family Medicine; Referring Provider Surgery; Visit Provider Surgery
PROC: 0DJD8ZZ Inspection of Lower Intestinal Tract, Via Natural or Artificial Opening Endoscopic (ICD-10-PCS; CPT 45378; principal; 2024-10-04 08:45)
DX: Z12.11 Encounter for screening for malignant neoplasm of colon (principal); K64.8 Other hemorrhoids
CPT/HCPCS: 45378; J2704

== ENCOUNTER → 2025-06-21 06:54 | Outpatient (CLI) | payer OTHER, SELFPAY ==
[2025-06-21 07:35] LABS: Add Manual Diff / Slide Review NO; Hematocrit 41.2 % (41-53); Hemoglobin 14.5 g/dL (13.5-17.5); Lymphocytes Absolute Auto 2000 /uL (1100-4500); Mean Corpuscular HGB Conc 35.1 % (30-36); Mean Corpuscular Hemoglobin 29.5 PG (26-34); Mean Corpuscular Volume 84.0 fL (80-100); Platelet Count 274 X10^3/uL (150-400)
[2025-06-21 07:58] LABS: Alanine Aminotransferase 19 IU/L (<50); Albumin 4.6 g/dL (3.5-5.0); Albumin Globulin Ratio 1.8 (1.0-2.8); Alkaline Phosphatase 30 U/L (38-126); Blood Urea Nitrogen 20 mg/dL (9-20); Calcium 9.6 mg/dL (8.4-10.2); Carbon Dioxide 29 mmol/L (22-32); Chloride 101 mmol/L (98-107); Cholesterol 217 mg/dL (140-199); Estimated Glomerular Filt Rate > 60 mL/min (>60); Globulin 2.6 g/dL (1.7-4.1); Glucose 101 mg/dL (70-99); HDL Cholesterol 54 mg/dL (40-60); HEMOLYSIS < 15 (0-50); Potassium 4.5 mmol/L (3.4-5.1); Sodium 136 mmol/L (137-145); Total Protein 7.2 g/dL (6.3-8.2); Triglycerides 148 mg/dL (35-150)
[2025-06-26 06:36] LABS: Percent Free Testosterone 1.94 % (1.50-4.20)
== END ==
PROVIDERS: PCP Family Medicine; Referring Provider Family Medicine; Visit Provider Family Medicine
DX: E78.5 Hyperlipidemia, unspecified (principal); R53.83 Other fatigue
CPT/HCPCS: 36415; 80053; 80061; 84402; 84403; 85025